=== PATIENT | female | born 1975 | race Caucasian/White ===

== ENCOUNTER → 2017-10-12 | Outpatient (CLI) | payer OTHER ==
[~2017-10-12] MED LIST: IBUP-1050 PO; SERT50TA PO; ZOLM1TAB3 PO
== END | disposition home or self-care (01) ==
LOC: C.PAPS 16:52
PROVIDERS: ATTEND Obstetrics & Gynecology
DX: Z12.4 Encounter for screening for malignant neoplasm of cervix (principal); R87.616 Satisfactory cervical smear but lacking transformation zone

== ENCOUNTER → 2017-10-19 | Outpatient (CLI) | payer OTHER ==
--- NOTE | 2017-10-20 15:09 | MAMMOGRAPHY REPORT ---
BILATERAL FIRST EVER DIGITAL SCREENING MAMMOGRAM TOMOSYNTHESIS WITH CAD: 10/19/2017 CLINICAL HISTORY: Baseline examination. Patient has no complaints. TECHNIQUE: Breast tomosynthesis in addition to standard 2D mammography was performed. Current study was also evaluated with a Computer Aided Detection (CAD) system. COMPARISON: No prior exams were available for comparison. BREAST COMPOSITION: The tissue of both breasts is almost entirely fatty. FINDINGS: No suspicious mass, architectural distortion or cluster of microcalcifications is seen. IMPRESSION: ACR BI-RADS CATEGORY 1: NEGATIVE There is no mammographic evidence of malignancy. A 1 year screening mammogram is recommended. The pa tient will receive written notification of the results. Approximately 10% of breast cancers are not detected with mammography. A negative mammographic report should not delay biopsy if a clinically suggestive mass is present. Concha sorenson/ml:10/19/2017 16:50:38 Air Pollution Auditor: Vandana Gutierrez, [facility] letter sent: Normal 1/2 BI-RADS Code: ACR BI-RADS Category 1: Negative
== END | disposition home or self-care (01) ==
LOC: C.MAMM 16:15
PROVIDERS: ATTEND Obstetrics & Gynecology
DX: Z12.31 Encounter for screening mammogram for malignant neoplasm of breast (principal)

== ENCOUNTER → 2017-11-19 | Outpatient (CLI) | payer OTHER ==
[2017-11-19 13:33] LABS: BASO % 0.6 %; BASO ABS # 0.07 K/uL (0-0.2); EOS % 0.8 %; EOS ABS # 0.09 K/uL (0-0.5); HEMATOCRIT 41.5 % (37-47); HEMOGLOBIN 14.1 g/dL (12.0-16.0); IG# 0.02 K/uL (0.00-0.02); LYMPH % 20.1 %; LYMPH ABS # 2.18 K/uL (1.2-3.4); MEAN CELL VOLUME 90.4 fL (80-100); MEAN CORPUSCULAR HEMOGLOBIN 30.7 pg (25-34); MEAN PLATELET VOLUME 12.1 fL (7.4-10.4); MONO % 5.3 %; MONO ABS # 0.57 K/uL (0.11-0.59); PLATELET COUNT 272 K/uL (130-400); RED CELL DISTRIBUTION WIDTH SD 46.4 fL (36.4-46.3); WHITE BLOOD COUNT 10.83 K/uL (4.8-10.8)
[2017-11-19 13:51] LABS: ALBUMIN 3.5 gm/dl (3.4-5.0); ALT/SGPT 19 U/L (12-78); BLOOD UREA NITROGEN 10 mg/dl (7-18); CALCIUM 8.8 mg/dl (8.5-10.1); CARBON DIOXIDE 27 mmol/L (21-32); CHOLESTEROL 205 mg/dl (0-200); CREATININE 0.68 mg/dl (0.60-1.20); GLUCOSE 106 mg/dl (70-99); SODIUM 138 mmol/L (136-145)
[2017-11-19 14:02] LABS: ALKALINE PHOSPHATASE 70 U/L (45-117); AST/SGOT 11 U/L (15-37); LDL CHOLESTEROL CALCULATED 145 mg/dl; TOTAL PROTEIN 7.2 gm/dl (6.4-8.2)
== END | disposition home or self-care (01) ==
LOC: C.LABPBG 08:41
PROVIDERS: ATTEND Nurse Practitioner Adult Health
DX: E78.5 Hyperlipidemia, unspecified (principal); M25.50 Pain in unspecified joint; Z13.29 Encounter for screening for other suspected endocrine disorder; Z13.0 Encounter for screening for diseases of the blood and blood-forming organs and certain disorders involving the immune mechanism

== ENCOUNTER → 2017-11-25 | Outpatient (CLI) | payer OTHER | END | disposition home or self-care (01) | LOC: C.LABSPEC 17:10 | PROVIDERS: ATTEND Nurse Practitioner Adult Health | DX: L72.9 Follicular cyst of the skin and subcutaneous tissue, unspecified (principal) ==

== ENCOUNTER → 2017-12-22 | Outpatient (CLI) | payer OTHER ==
--- NOTE | 2017-12-22 12:29 | DIAGNOSTIC IMAGING REPORT ---
CHEST 2 VIEWS ROUTINE CLINICAL HISTORY: J20.9 Acute bronchitis with [id number] bronchitis COMPARISON STUDY: 02/18/2015 FINDINGS: The bones soft tissues and hemidiaphragms are normal. The cardiomediastinal silhouette is normal. The lungs are clear. The pulmonary vasculature is normal. IMPRESSION: Negative chest. The above report was generated using voice recognition software. It may contain grammatical, syntax or spelling errors. Electronically signed by: Wayne Sarabia M.D. 12/22/2017 12:28 PM Dictated Date/Time: 12/22/2017 12:26 PM
== END | disposition home or self-care (01) ==
LOC: C.RADBC 12:14
PROVIDERS: ATTEND Nurse Practitioner Adult Health
DX: J20.9 Acute bronchitis, unspecified (principal)

== ENCOUNTER 2018-05-28 11:38 | Emergency (ER) | payer OTHER ==
[~2018-05-28] VITALS: Ht 165.1 cm; Wt 81.0 kg
[2018-05-28 11:44] VITALS: TEMP 37; Ht 165.1 cm; Wt 81.0 kg
[2018-05-28] MEDS ORDERED: KETOROLAC TROMETHAMINE 30 MG/ML VIAL IV STA (11:59)
[2018-05-28] MEDS ORDERED: DiphenhydrAMINE HCL 50 MG/ML VIAL IV STA (11:59)
[2018-05-28] MEDS ORDERED: PROCHLORPERAZINE 5 MG/ML 2 ML VIAL IV STA (11:59)
[2018-05-28] MEDS ORDERED: SODIUM CHLORIDE 0.9% 1000ML 1,000 ML IV STA (11:59)
[2018-05-28] MEDS ORDERED: DEXAMETHASONE INJ 10 MG in SYRINGE 0 ML IV ONE (12:00)
[2018-05-28] MEDS ORDERED: DEXAMETHASONE SOD INJ 10 MG/ML VIAL ONE (12:15)
[2018-05-28 13:55] VITALS: BP 120/86; PULSE 86; O2SAT 98
--- NOTE | 2018-05-28 17:36 | EMERGENCY ROOM VISIT NOTE ---
ED Visit Note First contact with patient: 11:52 CHIEF COMPLAINT: Migraine headache HISTORY OF PRESENT ILLNESS: This 42-year-old white female complains of gradual onset of a severe generalized headache that started this morning. There has been associated nausea and vomiting. The patient denies fever or chills recently, and denies any other cold symptoms. There is no weakness or numbness of the extremities. There is no difficulty with speech, hearing, or vision. No trauma to the head and no neck pain. The pain is severe, constant, and has been slowly increasing in severity. She is photophobic and phonophobic. This is not the worst headache of her life and is similar to previous migraines. She did take Zomig this morning but states it did not help. She has required IV medication in the past. Pain is 9/10. Her mother accompanies her today. REVIEW OF SYSTEMS: Ears: No pain or change in hearing. Neck: No pain, stiffness, or swelling. Neurological: No changes in mental status, vertigo, focal weakness, numbness. Cardiac: No chest pain, diaphoresis, dyspnea on exertion, orthopnea, pedal edema, or palpitations. Respiratory: No cough, change in sputum, wheezes, hemoptysis, shortness of breath, or stridor. Gastrointestinal: No abdominal pain, blood in stools, diarrhea, or loss of appetite. Skin: No rash, new lesions, or masses. General: No fever or chills , fatigue, loss of appetite, or significant recent weight gain or loss. PMH: Supplemental sheet was reviewed and signed. Previous surgeries: Cholecystectomy, ACL reconstruction, tubal ligation Medical history: Significant for migraine headaches and depression Family history: Noncontributory. Parents are living. SOCIAL HISTORY: Self-employed. Allergies: Known allergy to codeine and red dye Current Medications: Ibuprofen, Zomig, Zoloft PHYSICAL EXAM: Vital Signs: Afebrile. Reviewed and filed in patient's chart MENTAL STATUS: Alert, oriented, and coherent. In obvious discomfort from the headache. No acute distress. Skin:Warm and dry with good turgor. No rashes or lesions. No ecchymosis or erythema. The patient is not diaphoretic. No abrasions. HEENT:Normocephalic atraumatic. Eyes PERRLA, EOMI. No conjunctiva or scleral injection. She is light sensitive. Ears TMs intact bilaterally with good light reflexes. No erythema or bulging. No hemotympanum. Canals are patent. Nares patent bilaterally without turbinate enlargement. No significant drainage. Oropharynx without erythema or exudate. Uvula midline, oral mucosa moist. No lesions present. NECK: Supple, nontender, no nuchal rigidity. HEART: Regular rhythm and normal rate without murmurs, ectopy, gallops, or rubs. Peripheral pulses are 2+. LUNGS: Lungs are clear to auscultation. No crackles rhonchi or wheezing. Good air movement. The patient is able to take a deep breath. Abdomen: Mildly obese. Bowel sounds present x4. Soft, nontender to palpation. No organomegaly. No masses noted. NEUROLOGIC: The patient moves all extremities well. Cranial nerves 2 through 12 are intact. Gross sensation is intact across the upper and lower extremities via soft touch. EMERGENCY DEPARTMENT COURSE: The patient was educated regarding today's findings. Conservative care measures were discussed. The patient was given 1 L normal sterile saline IV bolus, 30 mg IV, Compazine 10 mg IV, Decadron 10 mg IV, and Benadryl 25 mg IV for the headache with significant relief of the pain and nausea. I do not suspect intracranial bleed, encephalitis, or meningitis. DIAGNOSIS: Migraine headache DISCHARGE INSTRUCTIONS & TREATMENT: Patient was given saline, Compazine, Decadron, Benadryl, and Toradol for nausea and pain control. Rest at home in a quiet, dark room. Driving precautions were reviewed. Take her Zomig for any breakthrough pain. See your own doctor in follow-up. Maintain hydration. Return to the ER for any acute changes in mental status. Migraine headache handout was provided. (Jose Luis Sifuentes,P.A.) First contact with patient: 11:52 (Yaya Carlson M.D.) Problem List Surgical Problems: (1) History of cholecystectomy Status: Resolved (2) S/P ACL reconstruction Status: Resolved (Yaya Carlson M.D.) Current/Historical Medications Scheduled Sertraline (Zoloft), 100 MG PO QAM Scheduled PRN Ibuprofen (Advil), 200-600 MG PO Q4H PRN for Pain Zolmitriptan (Zomig), 10 MG PO BIDM PRN for Migraine Allergies Coded Allergies: Red Dye (Verified Allergy, Mild, UNKNOWN, 05/28/18) Codeine (Verified Adverse Reaction, Mild, VOMITING, 05/28/18) Vital Signs Date Time Temp Pulse Resp B/P (MAP) Pulse Ox O2 Delivery O2 Flow Rate FiO2 05/28/18 13:55 86 120/86 98 05/28/18 12:42 71 14 138/94 96 Room Air 05/28/18 11:44 37.0 86 18 120/83 96 Room Air (Yaya Carlson M.D.) Medications Administered Medications (Trade) Dose Ordered Sig/Jermaine Route Start Time Stop Time Status Last Admin Dose Admin Sodium Chloride 1,000 ml @ 999 mls/hr Q1H1M STAT IV 05/28/18 11:59 05/28/18 12:59 DC 05/28/18 12:35 999 MLS/HR Ketorolac Tromethamine (Toradol Inj) 30 mg NOW STAT IV 05/28/18 11:59 05/28/18 12:01 DC 05/28/18 12:36 30 MG Diphenhydramine HCl (Benadryl Inj) 25 mg NOW STAT IV 05/28/18 11:59 05/28/18 12:01 DC 05/28/18 12:35 25 MG Prochlorperazine Edisylate (Compazine Inj) 10 mg NOW STAT IV 05/28/18 11:59 05/28/18 12:01 DC 05/28/18 12:36 10 MG Dexamethasone Sodium Phosphate (Decadron Inj) 10 mg STK-MED ONCE .ROUTE 05/28/18 12:15 05/28/18 12:16 DC 05/28/18 12:35 10 MG (Yaya Carlson M.D.) Departure Information Referrals Concha Duran CRNP (PCP) Patient Instructions My [facility]
== END 2018-05-28 13:55 | disposition home or self-care (01) ==
LOC: C.EDB 11:40
DX: G43.109 Migraine with aura, not intractable, without status migrainosus (principal); Z79.1 Long term (current) use of non-steroidal anti-inflammatories (NSAID); Z79.899 Other long term (current) drug therapy; Z88.6 Allergy status to analgesic agent; Z91.018 Allergy to other foods

== ENCOUNTER 2020-12-30 07:22 | Observation (INO) ==
--- NOTE | 2020-12-24 13:35 | Anesthesiology Consultation ---
Date of Service December 24, 2020 Assessment & Plan (1) Encounter for pre-operative examination: Chart Review Chart Review: Acceptable Risk for Surgery (pending preop Covid testing ) and Patient NOT seen in Pre Admission Testing - Check test AM DOS Per nursing assessment 12/03/2020, patient resides and works in [facility]. Wears mask, uses good hand hygiene and socially distances. No known Covid positive contacts or Covid related symptoms. No known Covid infection in the past 90 days. Covid test 12/24/20= results pending History Surgery Operation Date: 12/30/20 07:30 Proposed Procedures p Robotic Total Laparoscopic Hysterectomy - Lyndsey Anderson MD Height/Weight Height: 5 ft 5 in Weight: 77.111 kg Allergies Allergy/AdvReac Type Severity Reaction Status Date / Time red dye Allergy Mild MIGRAINES Verified 12/24/20 10:22 codeine AdvReac Mild VOMITING Verified 12/24/20 10:22 Medications Home Medications Medication Instructions Recorded Confirmed Last Taken omeprazole 40 mg capsule,delayed 40 mg PO QAM 10/30/19 12/24/20 Unknown release ibuprofen 200 mg capsule 400 mg PO DAILY PRN 01/09/20 12/24/20 Unknown zolmitriptan 5 mg tablet 5 mg PO UD PRN 01/09/20 12/24/20 Unknown valacyclovir 1,000 mg PO UD PRN 09/12/20 12/24/20 Unknown ergocalciferol (vitamin D2) 1,250 1,250 mcg PO .COMPLEX #12 cap 10/10/20 12/24/20 Unknown mcg (50,000 unit) capsule sertraline 50 mg PO QAM 12/03/20 12/24/20 Unknown Past Medical History Medical History GERD (gastroesophageal reflux disease) Controlled with PPI Herpes genitalia Hyperlipidemia monitoring Migraine when on AMBROCIO Pre-menstrual mood disorder Past Family History Family History Father Heart disease Myocardial infarction Colonic polyp Mother Diabetes Hypertension Grandfather (Paternal) Colorectal cancer Other No family history of adverse response to anesthesia Denies family history of Ovarian cancer Prostate cancer Breast cancer Past Surgical History Surgical History H/O anterior cruciate ligament surgery (~1994) Left Knee H/O tubal ligation (2014) History of cholecystectomy S/P gastric surgery gastric sleeve-01/2018 S/P left knee arthroscopy (~1993) Social History Smoking Status: Light tobacco smoker tobacco type: cigarettes Smoking cigarettes per day: 4-5 CIGS A DAY Do You Dip or Chew Tobacco: No Hx Alcohol Use: Yes Alcohol type: beer alcohol intake frequency: a few times a week Hx Substance Use: No substance use type: does not use
[~2020-12-30 07:22] MED LIST changes: -IBUP-1050 PO; +LACTATED RINGER'S 1,000 ML IV SCH; +LIDOCAINE 2% 2 ML VIAL/AMP(20MG/ML) INFIL ONE; +LR 15ML/HR IV SCH; +MIDAZOLAM HCL 1 MG/ML 2ML VIAL ONE; +PROPOFOL IV EMULSION 10 MG/ML 20 ML VIAL IV ONE; +ROCURONIUM BROMIDE 10 MG/ML 5 ML VIAL IV ONE; -SERT50TA PO; -ZOLM1TAB3 PO; +ceFAZolin 2000MG 2,000 MG/15 ML SYR IV SCH; +fentaNYL citrate 100 MCG/2 ML VIAL ONE
[2020-12-30] MEDS ORDERED: HYDROmorphone INJ 2 MG/ML SYR/VIAL IV PRN (08:26)
[2020-12-30] MEDS ORDERED: PROMETHAZINE HCL 12.5 MG in SODIUM CHLORIDE 0.9% 50 ML IV PRN (08:26)
[2020-12-30] MEDS ORDERED: ONDANSETRON INJ 2 MG/ML 2 ML VIAL IV PRN ×2 (08:26→11:11)
[2020-12-30] MEDS ORDERED: ATROPINE SULFATE 0.1 MG/ML 10ML SYR IV PRN (08:26)
[2020-12-30] MEDS ORDERED: METOCLOPRAMIDE HCL INJ 5 MG/ML 2 ML VIAL IV PRN (08:26)
[2020-12-30] MEDS ORDERED: ePHEDrine sulfate 50 MG/ML AMP IV PRN (08:26)
--- NOTE | 2020-12-30 08:32 | History & Physical Bridge Note ---
Date of Service December 30, 2020 History & Physical Bridge Note I have examined the patient, reviewed the History & Physical and in the interval since the performance of the History & Physical I have noted the following changes of clinical significance: no changes noted
[2020-12-30] MEDS ORDERED: METHYLENE BLUE 0.5% 10 ML VIAL ONE (08:34)
[2020-12-30] MEDS ORDERED: ACETAMINOPHEN 1000 MG/100 ML IV IV ONE (08:39)
[2020-12-30] MEDS ORDERED: HYDROmorphone INJ 2 MG/ML SYR/VIAL ONE (09:23)
[2020-12-30] MEDS ORDERED: DEXAMETHASONE SOD INJ 4 MG/ML VIAL ONE (09:47)
[2020-12-30] MEDS ORDERED: ONDANSETRON INJ 2 MG/ML 2 ML VIAL ONE (09:47)
[2020-12-30] MEDS ORDERED: ROCURONIUM BROMIDE 10 MG/ML 5 ML VIAL IV ONE ×2 (09:56)
[2020-12-30] MEDS ORDERED: MEPERIDINE HCL 25 MG/ML CARP/VIAL IV PRN (11:11)
[2020-12-30] MEDS ORDERED: MEPERIDINE HCL 50 MG/ML CARP IV PRN (11:11)
[2020-12-30] MEDS ORDERED: oxyCODONE/ACETAMINOPHEN 5mg/325mg TAB PO PRN ×2 (11:11)
[2020-12-30] MEDS ORDERED: IBUPROFEN 600 MG TAB PO PRN (11:11)
[2020-12-30] MEDS ORDERED: ACETAMINOPHEN 325 MG TAB PO PRN (11:11)
[2020-12-30] MEDS ORDERED: KETOROLAC 30 MG/ML VIAL IV PRN (11:11)
--- NOTE | 2020-12-30 11:11 | Operative Report ---
PG Post Operative Report Pre & Post Diagnosis Operation Date: 12/30/20 09:00 Pre-Op Diagnosis: Abnormal Uterine Bleeding Post-Op Diagnosis: Abnormal Uterine Bleeding I identified the patient and participated in the time-out.: Yes Procedure Operation Date: 12/30/20 09:00 Actual Procedures p Robotic Total Laparoscopic Hysterectomy, bilateral salpingectomy, Cystoscopy(Not Applicable) - Lyndsey Anderson MD Surgeon Lyndsey Anderson MD Exercise Scientist None Estimated Blood Loss 20 Findings Consistent with Post-Op Diagnosis Specimens Uterus/Cervix/Tubes Anesthesia Type General Complications none Disposition Accompanied Patient To Recovery: Yes Disposition: Recovery Room Description of Procedure The patient was brought to the operating room and placed on the table in dorsal lithotomy position with yellofin stirrups, prepped and draped in standard sterile fashion, and a hard time out was taken prior to proceeding. The bladder was emptied via placement of nickerson catheter. A Next Gen Illumination-Vonjour uterine manipulator was placed in the usual manner. Attention was then turned to the abdomen where optical entry was made at the umbilicus without complication. The abdomen was insufflated and the patient was placed in steep Trendelenburg. Under direct visualization, right and left lower quadrant ports were placed without complication. The camera was placed through the LLQ port to look back at the optical entry port, and this entry site was seen to be clean and hemostatic without evident adhesions or likely injury to local structures. Camera was moved back to the umbilical port. Survey of the abdomen revealed evidence of prior tubal ligation, normal uterus and ovaries, adhesions of the bowel to abdominal wall in the upper quadrants and to the LLQ and pelvic sidewall. The robot was then docked and surgery proceeded with the surgeon at the console. The ureter was identified on each side and traced along its course into the pelvis. Each fallopian tube in turn was elevated, dissected off the mesosalpinx and left attached to the uterine cornu. The fimbriated end of the L tube was so discontinuous from the cornual segment that it could not easily be left attached, and it was therefore completely and removed at that time through the LLQ port. The R tubal remnant / fimbriated end was able to be left attached to the uterus. Each utero-ovarian ligament was ligated and then divided. Each round ligament was ligated and then divided. The anterior leaflets of the broad ligament were dissected to create a bladder flap which was gently mobilized downward below the colpotomy cup ridge. Each uterine artery was skeletonized, ligated, and then divided. Circumferential colpotomy was then completed following the colpotomy cup guide. The cervix, uterus and bilateral tubes were then retrieved en bloc via the vagina. The vaginal cuff was then closed using V-Gali suture in the typical running non-locked fashion. The needle was attempted to be retrieved through a trocar, as is my usual practice, however the bedside review assistant did not find the needle in her grasper when she retrieved it from the port. The needle was not visualized in the pelvis either, including after suction evacuated the minimal blood present in the pelvic cul-de-sac (no irrigation used); a laparoscopic survey of the upper abdomen as well as a search of the OR area did not find the needle. The robot was undocked and the patient's bed was flattened out of Trendelenberg to allow for X-Ray to be taken. An intraoperative abdominal x-ray was used to identify the needle as being located within the pelvis. Non-robotic laparoscopy was used to quickly visualize and retrieve the needle from where it lay atop the bowel using a standard needle driver service technician. As there was no force applied to the free-floating needle during its time in the abdomen, no injury is anticipated to have occurred. After administration of IV Methylene Blue dye, cystoscopy was then utilized to examine the bladder dome which was free of suture or injury. The ureteral orifices were observed until a good strong jet of blue stained urine was seen from each. The bladder was then drained. The robot was then undocked, and abdominal trocar sites were closed using a 4-0 monocryl at each of the skin incisions. A dermabond dressing was applied to each site. A final vaginal exam ensured no materials were present in the vagina and the cuff was intact. The patient was then transferred in stable condition to the recovery room. I attest to the content of the Intraoperative Record and any orders documented therein. Any exceptions are noted below.
--- NOTE | 2020-12-30 11:16 | XRay Report ---
KUB HISTORY: Evaluate for foreign body. COMPARISON: None. FINDINGS: Multiple laparoscopic ports are seen overlying the pelvis. There is also a 3 cm curvilinear needle within the right lower quadrant of the pelvis. Surgical clips in the upper abdomen consistent with prior postoperative changes. No renal calculi. No ureteral calculi. No pneumoperitoneum or pne umatosis. IMPRESSION: A 3 cm curvilinear needle within the right lower quadrant of the pelvis. This was reportedly removed by the operating physician. ACT 112: Negative or not required by law. Electronically signed by: Cristofer Yañez M.D. 12/30/2020 11:14 AM
[2020-12-30] MEDS ORDERED: GLYCOPYRROLATE 0.2 MG/ML VIAL ONE (11:25)
[2020-12-30] MEDS ORDERED: NEOSTIGMINE METHYLSULFATE 5 MG/5 ML SYR ONE (11:25)
[2020-12-30] MEDS: fentaNYL citrate 100 MCG/2 ML VIAL IV PRN ×2 (11:31→11:40)
[2020-12-30] MEDS ORDERED: KETOROLAC 30 MG/ML VIAL ONE (12:50)
[2020-12-30] MEDS ORDERED: LACTATED RINGER'S 1,000 ML IV SCH (13:15)
--- NOTE | 2020-12-30 14:37 | Anesthesiology Progress Note ---
Date of Service December 30, 2020 Anesthesia Post Procedure Vital Signs Vital Signs: Temp Pulse Pulse Pulse Resp BP Pulse Ox 12/30/20 14:35 36.7 C 74 18 128/82 96 12/30/20 13:34 36.6 C 62 16 112/76 95 12/30/20 13:05 36.4 C L 62 16 121/79 96 12/30/20 12:35 36.4 C L 62 16 115/80 96 12/30/20 12:30 65 14 112/75 95 12/30/20 12:20 62 16 113/75 94 12/30/20 12:10 58 L 18 127/80 97 12/30/20 12:00 36.1 C L 58 L 14 122/76 95 12/30/20 11:50 59 L 14 121/68 98 12/30/20 11:40 55 L 14 120/74 99 12/30/20 11:30 55 L 18 121/75 100 12/30/20 11:20 57 L 18 113/73 100 12/30/20 11:14 36.4 C L 70 14 110/71 97 12/30/20 07:53 36.7 C 86 18 112/72 97 Pain Intensity Abdomen: Pain Intensity: 7 Transfer of Care Handoff Completed per policy Notes Mental Status: alert / awake / arousable and participated in evaluation Patient Amnestic to Procedure: Yes Nausea / Vomiting: adequately controlled Pain: adequately controlled Airway Patency, RR, SpO2: stable & adequate BP & HR: stable & adequate Hydration State: stable & adequate Anesthetic Complications: no major complications apparent
[2020-12-30 15:55] LABS: Hematocrit (blood only) 35.5 % (37-47); Hemoglobin 11.6 g/dL (12.0-16.0)
--- NOTE | 2020-12-30 17:10 | Discharge Summary ---
Date of Service December 30, 2020 Discharge Data Procedures Performed Operation Date: 12/30/20 09:00 Actual Procedures p Robotic Total Laparoscopic Hysterectomy, Cystoscopy(Not Applicable) - Lyndsey Anderson MD Hospital Course (1) Abnormal uterine bleeding (AUB): Patient admitted for and underwent planned robotic hysterectomy, bilateral salpingectomy and cystoscopy. Her case was uncomplicated. However, we did use intraoperative x-ray to locate a needle which was lost during retrieval through a laparoscopic port, and which was thus identified in and removed from the p qasim where it had fallen. The patient was taken to phase 1 and then to 4th floor for recovery as per usual protocol. The nurse called me in the afternoon to review that this patient had met her postoperative milestones: namely she was ambulating well, had voided a sufficient amount to demonstrate good bladder function, had tolerated a full regular meal, and was well-controlled with oral pain meds. She was requesting discharge to home. We also reviewed her PM labs which showed stable normal hemoglobin. The patient's discharge order was placed and Rx was sent for #10 tabs of percocet for prn use after patient arrives home. Follow up in the office is to occur at 2 and 6 week post op intervals per usual protocol. Coding Level of Care Code None Diagnoses Abnormal uterine bleeding (AUB) N93.9
[2020-12-30] MEDS ORDERED: DOCUSATE SODIUM 100 MG CAP PO SCH (21:00)
== END 2020-12-30 17:20 | disposition home or self-care (01) ==
LOC: ASU 07:22 → 4N 07:22